=== PATIENT | female | born 1960 ===

== ENCOUNTER → 2023-10-08 10:46 | Outpatient (BNVA) | payer BC, SELFPAY | PROVIDERS: PCP Clinical Nurse Specialist Adult Health; Visit Provider Clinical Nurse Specialist Adult Health | DX: I10 Essential (primary) hypertension (principal); E83.119 Hemochromatosis, unspecified; E55.9 Vitamin D deficiency, unspecified | CPT/HCPCS: 80053; 82306; 82728; 85025 ==

== ENCOUNTER → 2023-11-05 11:22 | Outpatient (BNVA) | payer BC, SELFPAY | PROVIDERS: PCP Clinical Nurse Specialist Adult Health; Visit Provider Clinical Nurse Specialist Adult Health | DX: I10 Essential (primary) hypertension (principal); J43.9 Emphysema, unspecified; J44.9 Chronic obstructive pulmonary disease, unspecified; F17.210 Nicotine dependence, cigarettes, uncomplicated | CPT/HCPCS: 80053; 84443 ==

== ENCOUNTER 2024-04-26 08:47 | Emergency (ER) | payer OTHER, SELFPAY ==
[2024-04-26 09:06] VITALS: BP 142/97; PULSE 110; RESP 14; TEMP 37; O2SAT 94; BMI 22.3
--- NOTE | 2024-04-26 09:37 | ED_ITS ---
HPI - Abdominal Pain 2 General: Chief Complaint: Abdominal Pain Stated Complaint: Lower right flank pain Time Seen by Provider: 04/26/24 08:59 History of Present Illness: 63-year-old female who presents to the e mergency room complaining of right lower quadrant abdominal pain right flank pains been going on for the last couple of days. She is concerned she may have an appendicitis. No dysuria urgency or frequency no hematuria no hematochezia melena hematemesis she is not on any anticoagulants. She has spontaneous bruising about an umbilical hernia that she only noticed today while waiting to physical exam she does not remember from prior. She has been nauseous without vomiting. She is mildly tachycardic. She does not's drink alcohol regularly but does admit to occasional binge drinking. She does smoke. Associated Symptoms: Reports nausea; Denies chills, constipation, diarrhea, dysuria, fever(s) and vomiting Related Data Home Medications Medication Instructions Recorded Confirmed alprazolam 0.5 mg tablet 0.5 mg PO Q12H PRN Anxiety 04/26/24 04/26/24 Previous Rx's Medication Instructions Recorded albuterol sulfate 90 mcg/actuation 2 puff inhalation Q6H PRN 11/05/23 aerosol inhaler shortness of breath or wheezing #3 Cans aspirin 81 mg tablet,delayed 81 mg PO DAILY #30 tabs 11/05/23 release (Adult Aspirin Regimen) cholecalciferol (vitamin D3) 50 50 mcg PO DAILY #30 caps 11/05/23 mcg (2,000 unit) capsule ipratropium 0.5 mg-albuterol 3 mg 3 ml inhalation Q4H PRN shortness 11/05/23 (2.5 mg base)/3 mL nebulization of breath or wheezing #90 mL soln metoprolol succinate 50 mg 50 mg PO DAILY #90 tabs 11/05/23 tablet,extended release 24 hr hydrocodone 5 mg-acetaminophen 325 1 tab PO Q6H PRN pain #10 tabs 04/26/24 mg tablet Allergies Allergy/AdvReac Type Severity Reaction Status Date / Time No Known Allergies Allergy Verified 04/26/24 09:19 Review of Systems 2 Const: Denies: fever(s) or chills Card: Denies: chest pain Resp: Denies: dyspnea GI: Reports: abdominal pain and nausea; Denies: vomiting, diarrhea or constipation : Denies: dysuria, urinary frequency or urinary urgency Musc: Denies: neck pain or back pain Skin/Breast: Denies: rash PFSH ED 2 PFSH: Medical History Tobacco dependence due to cigarettes Atrial fibrillation Generalized anxiety disorder Vitamin D3 deficiency Elevated LFTs Hepatomegaly Hemochromatosis COPD (chronic obstructive pulmonary disease) Essential hypertension Surgical History Hx of tubal ligation Hx of fracture of ankle left ankle surgery Family History Other Atrial fibrillation Hypertension Denies family history of Clotting disorder Breast cancer Anesthesia complication Bleeding disorder Social History Smoking and tobacco/nicotine status: current every day tobacco/nicotine user Alcohol intake: current Alcohol intake frequency: few times a week Substance/Drug Use: current Household members: spouse Marital status: Number of children: 5 Physical Exam 2 Const: GENERAL APPEARANCE: cooperative ORIENTATION/CONSCIOUSNESS: Yes awake, Yes oriented to person, Yes oriented to place and Yes oriented to time HENMT: COMMON NORMALS: normocephalic, atraumatic and hearing grossly normal bilaterally HEAD & SCALP: normocephalic and atraumatic Resp: COMMON NORMALS: normal respiratory effort, No retractions, No use of accessory muscles and clear to auscultation bilaterally AUSCULTATION: clear to auscultation bilaterally Cardio: COMMON NORMALS: regular rate, regular rhythm and No murmurs present (Cardio) RATE: regular rate RHYTHM: regular rhythm GI: COMMON NORMALS: No hepatosplenomegaly present AUSCULTATION: Yes normoactive bowel sounds PALPATION: Yes Tenderness to palpation present (GI), No Guarding due to palpation present (GI) and Yes No hepatosplenomegaly present Extremity: COMMON NORMALS: normal to inspection, capillary refill normal, no clubbing, cyanosis or edema, no calf tenderness and no pedal edema Neuro: SENSORIUM/ORIENTATION: Yes oriented to person, Yes oriented to place and Yes oriented to time Skin: COMMON NORMALS: no rashes or lesions noted GENERAL SKIN EXAM: no rashes or lesions noted Course 2 Vital Signs: Vital signs: Vital Signs Temperature 98.6 F 04/26/24 09:06 Pulse Rate 101 H 04/26/24 12:50 Respiratory Rate 14 04/26/24 09:06 Blood Pressure 144/99 04/26/24 12:50 Pulse Oximetry 93 04/26/24 12:50 Oxygen Delivery Me thod Room Air 04/26/24 11:06 MDM - Abdominal Pain Medical Decision Making CT shows a rectus wall hematoma. No active bleeding reviewed with the radiologist. Hemoglobin is stable. CT of the abdomen is normal. Will discharge patient home on pain medications to use as needed. Follow-up as needed Lab Data 04/26/24 10:05 04/26/24 10:05 Labs/Radiology: Radiology Impressions Abdomen/Pelvis CT 04/26/24 09:46 IMPRESSION: 1. Large RIGHT rectus sheath hematoma extends over a length of at least 9 cm and transversely by 5.6 cm. The epigastric artery is enhancing normally but displaced by the hematoma. No active extravasation from the inferior epigastric artery. 2. Ventral abdominal wall fat-containing hernia at the umbilicus. The discoloration at the umbilicus may be due to the closely positioned rectus sheath hematoma. 3. Normal appendix. 4. Moderate size hiatal hernia. Notified Wilfrido Spencer DO at 04/26/2024 12:20 PM. Laboratory Results WBC 14.59 10^3/uL (3.29-11.43) H 04/26/24 10:05 RBC 5.43 10^6/uL (3.85-5.65) 04/26/24 10:05 Hgb 16.90 g/dL (11.27-16.99) 04/26/24 10:05 Hct 52.6 % (36-47) H 04/26/24 10:05 MCV 96.9 fl (85-98) 04/26/24 10:05 MCH 31.1 pg (27-33) 04/26/24 10:05 MCHC 32.1 g/dL (30-55) 04/26/24 10:05 RDW 13.0 % (12.1-15.1) 04/26/24 10:05 Plt Count 239 10^3/cmm (157-399) 04/26/24 10:05 MPV 10.4 fL (7.4-10.4) 04/26/24 10:05 Neut % (Auto) 69.8 % 04/26/24 10:05 Lymph % (Auto) 21.1 % 04/26/24 10:05 [place] % (Auto) 7.4 % 04/26/24 10:05 Eos % (Auto) 0.6 % 04/26/24 10:05 Baso % (Auto) 0.5 % 04/26/24 10:05 Neut # (Auto) 10.17 10^3/uL (1.8-7.7) H 04/26/24 10:05 Lymph # (Auto) 3.1 10^3/uL (0.8-4.8) 04/26/24 10:05 [place] # (Auto) 1.1 10^3/uL (0.2-0.9) H 04/26/24 10:05 Eos # (Auto) 0.1 10^3/uL (0.0-0.8) 04/26/24 10:05 Baso # (Auto) 0.1 10^3/uL (0.0-0.1) 04/26/24 10:05 Nucleated RBC % (auto) 0 % 04/26/24 10:05 Nucleated RBCs # 0.0 /100WBC 04/26/24 10:05 PT 11.90 SECONDS (12.1-14.9) L 04/26/24 10:05 INR 0.86 (0.8-1.2) 04/26/24 10:05 APTT 28.0 SECONDS (23.9-36.7) 04/26/24 10:05 Sodium 136 mmol/L (136-145) 04/26/24 10:05 Potassium 3.9 mmol/L (3.5-5.1) 04/26/24 10:05 Chloride 96 mmol/L (98-107) L 04/26/24 10:05 Carbon Dioxide 25 mmol/L (22-29) 04/26/24 10:05 Anion Gap 18.9 (5-19) 04/26/24 10:05 BUN 3 mg/dL (8-23) L 04/26/24 10:05 Creatinine 0.5 mg/dL (0.5-0.9) 04/26/24 10:05 GFR Calculation 124.2 mL/min (90-130) 04/26/24 10:05 Glucose 98 mg/dL (65-115) 04/26/24 10:05 Calculated Osmolality 279 mOsm/kg (285-295) L 04/26/24 10:05 Lactic Acid 1.4 mmol/L (0.5-2.2) 04/26/24 10:05 Calcium 9.1 mg/dL (8.5-10.5) 04/26/24 10:05 Total Bilirubin 0.6 mg/dL (0.15-1.2) 04/26/24 10:05 AST 24 U/L (0-32) 04/26/24 10:05 ALT 33 U/L (0-33) 04/26/24 10:05 Alkaline Phosphatase 132 U/L (35-105) H 04/26/24 10:05 Total Protein 7.3 g/dL (6.6-8.7) 04/26/24 10:05 Albumin 4.4 g/dL (3.5-5.2) 04/26/24 10:05 Globulin 2.9 g/dL (1.3-4.6) 04/26/24 10:05 Lipase 24 U/L (13-60) 04/26/24 10:05 Urine Color Yellow (Yellow) 04/26/24 10:06 Urine Appearance Clear (CLEAR) 04/26/24 10:06 Urine pH 6.5 (5-7) 04/26/24 10:06 Ur Specific [place] 1.002 (1.005-1.030) L 04/26/24 10:06 Urine Protein Negative (Negative) 04/26/24 10:06 Urine Glucose (UA) Negative (Normal) 04/26/24 10:06 Urine Ketones Negative (Negative) 04/26/24 10:06 Urine Blood Negative (Negative) 04/26/24 10:06 Urine Nitrate Negative (Negative) 04/26/24 10:06 Urine Bilirubin Negative (Negative) 04/26/24 10:06 Urine Urobilinogen 0.2 mg/dL (Negative) 04/26/24 10:06 Ur Leukocyte Esterase Negative (Negative) 04/26/24 10:06 Urine RBC 0-2 /hpf (0-2) 04/26/24 10:06 Urine WBC 0-5 /hpf (0-5) 04/26/24 10:06 Ur Squamous Epith Cells 0-5 /hpf (0-5) 04/26/24 10:06 Amorphous Sediment Not Reportable 04/26/24 10:06 Urine Bacteria None seen /hpf (NONE) 04/26/24 10:06 Hyaline Casts 0-4 /lpf H 04/26/24 10:06 All radiology interpretation(s) finalized by discharge Discharge Plan Discharge Patient Disposition: Home Clinical Impression: Hematoma of rectus sheath Condition: Stable Prescriptions: New hydrocodone-acetaminophen 5-325 mg tablet 1 tab PO Q6H PRN (Reason: pain) Qty: 10 0RF No Action ipratropium-albuterol 0.5 mg-3 mg(2.5 mg base)/3 mL solution for nebulization 3 ml inhalation Q4H PRN (Reason: shortness of breath or wheezing) Qty: 90 6RF metoprolol succinate 50 mg tablet extended release 24 hr 50 mg PO DAILY Qty: 90 3RF albuterol sulfate 90 mcg/actuation HFA aerosol inhaler 2 puff inhalation Q6H PRN (Reason: shortness of breath or wheezing) Qty: 3 3RF aspirin [Adult Aspirin Regimen] 81 mg tablet,delayed release (DR/EC) 81 mg PO DAILY Qty: 30 0RF cholecalciferol (vitamin D3) 50 mcg (2,000 unit) capsule 50 mcg PO DAILY Qty: 30 0RF alprazolam 0.5 mg tablet 0.5 mg PO Q12H PRN (Reason: Anxiety) Discharge Orders: Discharge ED (Routine); Ordered 04/26/24 Ordered By: Wilfrido Spencer Referrals: Donald Denise, PIPE FITTER HELPER [Primary Care Provider] - Discharge Diet: Usual diet Discharge Activity: Increase activity as tolerated Patient Instructions: Opioid Safety, Pain Management Activity Restrictions/Additional Instructions: Thank you for choosing [facility] for your healthcare needs today. It is very important that you follow up as instructed or that you return to the Emergency Department should you have concerns or if your condition changes or worsens in any way. You were seen in the emergency room with complaint of right lower quadrant abdominal discomfort CT shows a normal appendix but there is a rectus sheath hematoma. This is a muscle wall of your abdomen. There is no active bleeding. Your hemoglobin is stable. Avoid heat to the area you can splint when coughing by pushing hard against the abdomen with your forearms or with squeezing a pillow. Your hemoglobin is stable. You should have your hemoglobin rechecked by your primary care doctor within the next week. Coding Level of Care Code ED Auto Body Repair Technician for Fantasma Berry
--- NOTE | 2024-04-26 09:46 | CT_ITS ---
WS: [id number] CT ABDOMEN AND PELVIS WITH CONTRAST HISTORY: abd pain TECHNIQUE: Imaging performed of the abdomen and pelvis with IV contrast. Single phase imaging of the abdomen. Coronal and sagittal reformats are submitted. All CT scans at [facility] use at [address] one of these dose optimization techniques: automated exposure control; mA and/or kV adjustment per patient size (includes targeted exams where dose is matched to clinical indication); or iterative re construction. IV CONTRAST: Omnipaque 350; 100 mL IV. Oral contrast: No DLP: 312.89 mGy.cm COMPARISON: None available. Lower thorax: Lung bases are hyperexpanded. Bilateral diaphragmatic hernias contain fat only. Heart i s normal size. Moderate size hiatal hernia. Liver/biliary system: Normal size with no intrahepatic dilatation. Gallbladder: Normal. No gallstones or wall thickening. No pericholecystic fluid. Pancreas: Normal size pancreas and pancreatic duct. No adjacent inflammation. Spleen: Normal size spleen. No mass or infarct. Adrenal glands: Normal. Right kidney: Normal. Left kidney: Normal. Aorta: Mild atherosclerotic plaque. Small amount of plaque at the origins of the SMA and celiac axis. Lymphadenopathy: None. Free fluid: None. GI tract: Nondistended stomach. No small bowel obstruction. Normal appendix. Appendix is elongated an d contains air. No adjacent inflammation. No colon obstruction. Mild diverticular disease. No diverti culitis. Abdominal wall: Large RIGHT rectus sheath muscle hematoma extends over a length of at least 9 cm and transversely 5.6 cm. There is displacement of small bowel loops in the RIGHT abdomen by the hematoma. Hematoma does appear to be contained within the abdominal wall. Hematoma extends to the midline and towards the umbilicus. At the umbilicus there is a small hernia containing fat only. The epigastric a rtery is enhancing but there is no active extravasation to suggest an acute bleed. Pelvis: No free fluid. Midline uterus. Prominent bilateral ovarian/gonadal veins. Inguinal canals are patent bilaterally containing fat only. Negative urinary bladder. Bladder is well distended. Bones: Sclerotic changes in the femoral heads. 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 Mild increase in lumbar lordosis. L4 anterolisthesis by [address]/CT abdomen pelvis w con* [id number] IMPRESSION: 1. Large RIGHT rectus sheath hematoma extends over a length of at least 9 cm a nd transversely by 5.6 cm. The epigastric artery is enhancing normally but disp laced by the hematoma. No active extravasation from the inferior epigastric art omar. 2. Ventral abdominal wall fat-containing hernia at the umbilicus. The discolor ation at the umbilicus may be due to the closely positioned rectus sheath hemat kishore. 3. Normal appendix. 4. Moderate size hiatal hernia. Notified Wilfrido Spencer DO at 04/26/2024 12:20 PM.
[2024-04-26 10:09] VITALS: BP 142/97; PULSE 102; O2SAT 94
[2024-04-26 10:16] LABS: Basophils # 0.1 10^3/uL (0.0-0.1); Basophils % 0.5 %; Eosinophils # 0.1 10^3/uL (0.0-0.8); Eosinophils % 0.6 %; Hematocrit 52.6 % (36-47); Lymphocytes # 3.1 10^3/uL (0.8-4.8); Lymphocytes % 21.1 %; Mean Corpuscular HGB Conc 32.1 g/dL (30-55); Mean Corpuscular Hemoglobin 31.1 pg (27-33); Mean Corpuscular Volume 96.9 fl (85-98); Mean Platelet Volume 10.4 fL (7.4-10.4); Monocytes # 1.1 10^3/uL (0.2-0.9); Monocytes % 7.4 %; Neutrophils # 10.17 10^3/uL (1.8-7.7); Neutrophils % 69.8 %; Nucleated Red Blood Cells % 0 %; Platelet Count 239 10^3/cmm (157-399); Red Blood Count 5.43 10^6/uL (3.85-5.65); White Blood Count 14.59 10^3/uL (3.29-11.43)
[2024-04-26 10:33] LABS: Lactic Sepsis W/Reflex 1.4 mmol/L (0.5-2.2)
[2024-04-26 10:35] LABS: INR 0.86 (0.8-1.2)
[2024-04-26 10:36] LABS: Bilirubin Urine Negative (Negative); Blood Urine Negative (Negative); Glucose Urine UA Negative (Normal); Ketones Urine Negative (Negative); Leukocyte Esterase Urine Negative (Negative); Nitrate Urine Negative (Negative); Protein Urine Negative (Negative); Specific Gravity, Urine 1.002 (1.005-1.030); Urine Appearance Clear (CLEAR); Urine Color Yellow (Yellow); Urobilinogen Urine 0.2 mg/dL (Negative); pH Urine 6.5 (5-7)
[2024-04-26 10:41] LABS: Add Urine Microscopic? YES; Bacteria Urine None Seen /hpf; Hyaline Casts Urine 0-4 /lpf; RBC Urine 0-2 /hpf (0-2); Squamous Epithelial Cell Urine 0-5 /hpf (0-5); WBC Urine 0-5 /hpf (0-5)
[2024-04-26 11:03] LABS: Alanine Aminotransferase 33 U/L (0-33); Albumin Level 4.4 g/dL (3.5-5.2); Alkaline Phosphatase 132 U/L (35-105); Anion Gap 18.9 (5-19); Aspartate Amino Transferase 24 U/L (0-32); Blood Urea Nitrogen 3 mg/dL (8-23); Calcium 9.1 mg/dL (8.5-10.5); Carbon Dioxide 25 mmol/L (22-29); Chloride 96 mmol/L (98-107); Creatinine Clr Calc Pharmacy 101.2189; Globulin 2.9 g/dL (1.3-4.6); Glomerular Filtration Rate 124.2 mL/min (90-130); Glucose 98 mg/dL (65-115); Lipase 24 U/L (13-60); Osmolality Calculated 279 mOsm/kg (285-295); Potassium 3.9 mmol/L (3.5-5.1); Sodium 136 mmol/L (136-145); Total Bilirubin 0.6 mg/dL (0.15-1.2); Total Protein 7.3 g/dL (6.6-8.7)
[2024-04-26 11:06] VITALS: BP 119/84; PULSE 95; O2SAT 99
[2024-04-26] MEDS: iohexol 350 mg/mL 500 mL Btl (per mL) IV (11:41)
[2024-04-26 12:50] VITALS: BP 144/99; PULSE 101; O2SAT 93
== END 2024-04-26 12:52 | disposition home or self-care (01) ==
PROVIDERS: Emergency Provider Family Medicine; PCP Clinical Nurse Specialist Adult Health
DX: S36.62XA Contusion of rectum, initial encounter (principal); Z79.82 Long term (current) use of aspirin; Z72.0 Tobacco use; J44.9 Chronic obstructive pulmonary disease, unspecified; I10 Essential (primary) hypertension; X58.XXXA Exposure to other specified factors, initial encounter
CPT/HCPCS: 74177; 80053; 81001; 83605; 83690; 85025; 85610; 85730; 99285

== ENCOUNTER → 2024-12-26 12:51 | Outpatient (BNVA) | payer MEDICARE, SELFPAY | PROVIDERS: PCP Clinical Nurse Specialist Adult Health; Visit Provider Clinical Nurse Specialist Adult Health | DX: M25.571 Pain in right ankle and joints of right foot (principal); I10 Essential (primary) hypertension; J43.9 Emphysema, unspecified; E55.9 Vitamin D deficiency, unspecified; F41.1 Generalized anxiety disorder; I48.0 Paroxysmal atrial fibrillation; M25.50 Pain in unspecified joint | CPT/HCPCS: 80053; 82728; 83540; 84550; 85025; 85651; 86140; 86431 ==

== ENCOUNTER → 2024-12-27 10:21 | Outpatient (BNVA) | payer MEDICARE, SELFPAY | PROVIDERS: PCP Clinical Nurse Specialist Adult Health; Visit Provider Clinical Nurse Specialist Adult Health | DX: M19.071 Primary osteoarthritis, right ankle and foot (principal) | CPT/HCPCS: 73610; 73620 ==